=== PATIENT | female | born 1945 | race Caucasian/White ===

== ENCOUNTER → 2017-03-14 | Outpatient (CLI) | payer MEDICARE ==
[2017-03-14 12:45] LABS: Blood Urea Nitrogen 15 mg/dL (7-17); Non-African American GFR(MDRD) >60 (>60 ml/min/1.73 sqM)
--- NOTE | 2017-03-14 13:40 | CT ---
EXAMINATION TYPE: CT angio chest DATE OF EXAM: 03/14/2017 1:31 PM COMPARISON: Radiographs 08/20/2016 HISTORY: 71-year-old female with dyspnea, trouble breathing, evaluate for PE. TECHNIQUE: Contiguous axial scanning of the chest performed with IV Contrast, patient injected with 1 00 ml mL of Omnipaque 350. Coronal/sagittal MIP reconstructions performed. CT DLP: 501 mGycm Automated exposure control for dose reduction was used. FINDINGS: Median sternotomy wires are present. The heart is normal size without pericardial effusion. There is normal caliber with conventional retropharyngeal branching anatomy. While there is satisfactory opacification of the pulmonary arterial system, there is some respiratory motion artifact limiting the segmental and more distal pulmonary arterial branches in the lower lung s. Otherwise, no pulmonary embolus is seen. No flattening of the interventricular septum reflux of co ntrast into the hepatic veins. No thoracic lymphadenopathy. Evaluation of the lungs shows mild diffuse bronchial wall thickening without consolidation or pleural effusion. Some strandy atelectasis at the inferior lingula. Visualized upper abdomen shows mild circumferential wall thickening of the distal esophagus. Moderate endplate spondylosis throughout the thoracic spine. Minimal anterior wedging of a midthoraci c vertebral body has a chronic appearance and was present on the prior chest x-ray. IMPRESSION: 1. MILD DIFFUSE BRONCHIAL WALL THICKENING COULD REPRESENT BRONCHITIS OR CHRONIC ASTHMA. 2. ALLOWING FOR LIMITATIONS IN ASSESSMENT OF SOME OF THE BASILAR SEGMENTAL AND SUBSEGMENTAL BRANCHES DUE TO RESPIRATORY MOTION, NO EVIDENCE FOR PULMONARY EMBOLUS ELSEWHERE IN THE LUNGS. 3. MILD CIRCUMFERENTIAL WALL THICKENING OF THE DISTAL ESOPHAGUS; CORRELATE TO EXCLUDE ANY SYMPTOMS OF ESOPHAGITIS.
== END | disposition home or self-care (01) ==
LOC: RADCTMAIN 11:59
PROVIDERS: ATTEND Internal Medicine Critical Care Medicine
DX: J98.09 Other diseases of bronchus, not elsewhere classified (principal); R06.00 Dyspnea, unspecified; R07.9 Chest pain, unspecified
CPT/HCPCS: 82565; 84520; 71275; 36415; Q9967; 93005; 99214

== ENCOUNTER → 2019-06-19 | Outpatient (CLI) | payer MEDICARE ==
--- NOTE | 2019-06-19 12:51 | CT ---
EXAMINATION TYPE: CT angio chest DATE OF EXAM: 06/19/2019 COMPARISON: Prior CT angiogram of the chest 03/14/2017 HISTORY: SOB CT DLP: 557 mGycm Automated exposure control for dose reduction was used. CONTRAST: CTA scan of the thorax is performed with IV Contrast, patient injected with 80 mL of Isovue 370, pulm onary embolism protocol. MIP images are created and reviewed. 3D reconstructed images are created o n an independent workstation and reviewed. FINDINGS: Patient is post median sternotomy. Sternal wires are in place. LUNGS: The lungs are grossly clear, there is no concerning parenchymal mass or nodule identified. T here is no pleural effusion or pneumothorax seen. The tracheobronchial tree is patent. AORTA: No additional significant abnormality is seen. MEDIASTINUM: There is satisfactory enhancement of the pulmonary artery and its branches, there is no CT evidence for pulmonary embolism. There are no greater than 1 cm hilar or mediastinal lymph nodes. No pericardial effusion is seen. There are coronary artery calcifications. OTHER: Adrenal glands appear atrophic. Patient is post cholecystectomy. Mild anterior wedge compress ion deformity noted at T7 level. No evident pulmonary embolism. Postop changes. Additional findings above. IMPRESSION:
== END | disposition home or self-care (01) ==
LOC: RADCTMAIN 11:16
PROVIDERS: ATTEND Internal Medicine Critical Care Medicine
DX: R06.02 Shortness of breath (principal); Z98.890 Other specified postprocedural states; Z88.5 Allergy status to narcotic agent
CPT/HCPCS: 82565; 84520; 71275; Q9967